=== PATIENT | male | born 1970 | race African-American/Black ===

== ENCOUNTER 2021-01-07 01:47 | Emergency (ER) | payer SELFPAY ==
[~2021-01-07] VITALS: Ht 172.7 cm; Wt 82.0 kg
[2021-01-07] MEDS ORDERED: ASPIRIN 81MG TABLET PO ONE (02:30)
[2021-01-07] MEDS ORDERED: KETOROLAC 60MG/2ML VIAL IM SCH (03:00)
[2021-01-07 03:04] LABS: BASOPHILS % 0.5 % (0.0-2.0); EOSINOPHILS % 0.1 % (0.0-5.0); HEMATOCRIT. 46.6 % (42.0-52.0); HEMOGLOBIN. 15.8 g/dL (14.0-18.0); LYMPHOCYTES % 21.5 % (20.0-50.0); MEAN CORPUSCULAR HEMOGLOBIN 31.8 pg (28.0-32.0); MEAN CORPUSCULAR VOLUME 93.6 fL (80.0-94.0); MEAN PLATELET VOLUME 7.2 fl (7.4-10.4); NEUTROPHILS % 73.9 % (40.0-76.0); PLATELET 254 x1000/uL (130-400); RED BLOOD CELL COUNT 4.98 mill/uL (4.7-6.1); RED CELL DISTRIBUTION WIDTH 14.3 % (11.6-14.6)
[2021-01-07 03:12] LABS: CHLORIDE 103 mEq/L (98-107)
[2021-01-07] MEDS ORDERED: MAGNESIUM/ALUMINUM HYDROXIDE/SIMETHICONE 30ML UDC PO SCH (03:47)
[2021-01-07] MEDS ORDERED: VISCOUS LIDOCAINE 2% 15 ML UDC PO SCH (03:47)
[2021-01-07 04:09] LABS: ETHANOL BLOOD 302 mg/dL
[2021-01-07 07:15] VITALS: BP 113/76
== END 2021-01-07 07:31 | disposition home or self-care (01) ==
LOC: ER 02:23
DX: F10.129 Alcohol abuse with intoxication, unspecified (principal); I10 Essential (primary) hypertension; Z20.822 Contact with and (suspected) exposure to COVID-19; Y90.8 Blood alcohol level of 240 mg/100 ml or more
CPT/HCPCS: 36415; 71045; 80053; 80320; 83690; 83880; 84484; 85025; 87426; 93005; 96372; 99285; C9803; J1885; U0003; U0005; Z7610; G0480

== ENCOUNTER 2023-06-13 14:48 | Emergency (ER) | payer OTHER ==
[~2023-06-13] VITALS: Ht 172.7 cm; Wt 90.0 kg
[2023-06-13 14:54] VITALS: O2SAT 99
[2023-06-13] MEDS ORDERED: CYCL10TA21 MT (17:31)
[2023-06-13] MEDS ORDERED: CEPH500T MT (17:31)
[2023-06-13] MEDS ORDERED: IBUP-2029 MT (17:32)
[2023-06-13 18:12] VITALS: BP 179/99; PULSE 71; RESP 20; TEMP 98.3
== END 2023-06-13 18:32 | disposition home or self-care (01) ==
LOC: ER 14:48
DX: S00.81XA Abrasion of other part of head, initial encounter (principal); M54.9 Dorsalgia, unspecified; L03.211 Cellulitis of face; I10 Essential (primary) hypertension; V49.50XA Passenger injured in collision with unspecified motor vehicles in traffic accident, initial encounter; Y93.89 Activity, other specified; Y92.89 Other specified places as the place of occurrence of the external cause; Y99.8 Other external cause status
CPT/HCPCS: 99283